=== PATIENT | female | born 1965 ===

== ENCOUNTER 2018-03-20 17:23 | Emergency (ER) | payer BC, MEDICAID ==
[2018-03-20 17:55] VITALS: BP 131/90; PULSE 72; RESP 16; TEMP 98.5; O2SAT 97
[2018-03-20 19:51] LABS: BASO % 0.4 % (0.0-2.0); EOS # 0.1 K/uL (0.0-0.7); EOS % 1.1 % (0.0-4.0); HEMOGLOBIN 13.2 g/dL (12.0-16.0); LYMPH # 2.8 K/uL (1.0-4.3); LYMPH % 37.6 % (20.0-40.0); MEAN CELL VOLUME 90.9 fl (81.0-99.0); MEAN CORPUSCULAR HEMOGLOBIN 30.9 pg (27.0-31.0); MEAN PLATELET VOLUME 9.1 fl (7.2-11.7); MONO # 0.8 K/uL (0.0-0.8); MONO % 10.9 % (0.0-10.0); NEUT # 3.7 K/uL (1.8-7.0); NRBC % 0.3 % (0.0-0.0); RBC 4.28 Mil/uL (3.80-5.20); WHITE BLOOD COUNT 7.4 K/uL (4.8-10.8)
--- NOTE | 2018-03-20 20:03 | ED PDOC ---
Upper Extremity Pain/Injury Time Seen by Provider: 03/20/18 18:50 Chief Complaint (Nursing): Finger,Hand,&Wrist Chief Complaint (Provider): Finger,Hand,&Wrist History Per: Patient History/Exam Limitations: no limitations Onset/Duration Of Symptoms: Hrs Current Symptoms Are (Timing): Still Present Additional Complaint(s): 52 year old female with a past medical history of hypertension who is presenting to the ED for evaluation of right wrist pain and swelling onset earlier today. Patient states that she woke up this morning and noticed that right wrist was swollen, warm, and tender. She reports that she took Tylenol around 11 am today and admits that she has a history of tendonitis of shoulder and elbow of the same arm which has presented similarly in the past. Patient denies any trauma, fevers, chills, numbness/tingling in fingers. PMD: Kevin Tanner Past Medical History Reviewed: Historical Data, Nursing Documentation, Vital Signs Vital Signs: Last Vital Signs Temp 98.5 F 03/20/18 17:51 Pulse 72 03/20/18 17:51 Resp 16 03/20/18 17:51 BP 131/90 03/20/18 17:51 Pulse Ox 97 03/20/18 17:51 - Medical History PMH: HTN, Hyperlipidemia - Surgical History Other surgeries: Tubal ligation, hysterectomy - Family History Family History: States: Unknown Family Hx - Social History Current smoker - smoking cessation education provided: No Alcohol: None Drugs: Denies - Home Medications Home Medications: Ambulatory Orders Medication Instructions Recorded Nabumetone 1,000 mg PO DAILY 03/22/15 Dicyclomine [Bentyl] 20 mg PO Q6 PRN #12 tab 01/08/16 Famotidine [Pepcid] 40 mg PO DAILY #10 tab 01/08/16 Ondansetron [Zofran] 4 mg PO Q8H #8 tab 01/08/16 Naproxen 500 mg PO BID PRN 7 Days tab 03/20/18 - Allergies Allergies/Adverse Reactions: Allergies Allergy/AdvReac Type Severity Reaction Status Date / Time No Known Allergies Allergy Verified 03/20/18 17:51 Review of Systems ROS Statement: Except As Marked, All Systems Reviewed And Found Negative Constitutional: Negative for: Fever, Chills Musculoskeletal: Positive for: Hand Pain Neurological: Negative for: Weakness, Numbness Physical Exam - Reviewed Nursing Documentation Reviewed: Yes Vital Signs Reviewed: Yes - Physical Exam Appears: Positive for: Non-toxic, No Acute Distress Head Exam: Positive for: ATRAUMATIC, NORMAL INSPECTION, NORMOCEPHALIC Skin: Positive for: Normal Color, Warm, DRY Pulses-Radial (L): 2+ Pulses-Radial (R): 2+ Extremity: Positive for: Capillary Refill (less than 2 seconds ), Other ( right wrist: posterior lateral aspect: edema and mild erythema with increased warmth to touch, decreased flexion and extension of wrist but normal flexion and extension at all five digits and elbow sensation to light touch intact in all 5 digits. ) Neurologic/Psych: Positive for: Alert, Oriented. Negative for: Motor/Sensory Deficits - Laboratory Results Result Diagrams: 03/20/18 19:45 - ECG O2 Sat by Pulse Oximetry: 97 (RA) Pulse Ox Interpretation: Normal Medical Decision Making Medical Decision Making: Time: 19:15 Plan: --CBC --Toradol 30 mg IM --X-ray right wrist X-ray interpreted by provider, with no fracture, dislocation, or abnormality appreciated. 20:15 --Ice pack supplied in the ED --Thumb spica splint placed to right hand, labs normal and patient referred to hand surgeon as well as recommended to take naproxen. --patient will be discharged home. Scribe Attestation: Documented by, Blanka Mauricio acting as a scribe for Chery Longoria PA-C. Provider Scribe Attestation: All medical record entries made by the Scribe were at my direction and personally dictated by me. I have reviewed the chart and agree that the record accurately reflects my personal performance of the history, physical exam, medical decision making, and the department course for this patient. I have also personally directed, reviewed, and agree with the discharge instructions and disposition. Disposition - Clinical Impression Clinical Impression: Wrist tendonitis - Patient ED Disposition Is Patient to be Admitted: No - Disposition Referrals: Twan Santillan MD [Medical Doctor] - Disposition: Routine/Home Disposition Time: 20:20 Condition: STABLE Additional Instructions: F/u with orthopedist (Dr. Santillan) for further evaluation of possible tendinitis of Right wrist. Use wrist brace for comfort and take Naproxen or Tylenol for pain. Prescriptions: Naproxen 500 mg PO BID PRN 7 Days tab PRN Reason: Pain, Moderate (4-7) Instructions: Tendonitis (DC) Forms: [facility] ([place]an), [employer] (Khmer), [facility] ED School/Work Excuse Print Language: CITIZEN OF [place]
--- NOTE | 2018-03-21 13:57 | RAD ---
Date of service: 03/20/2018 PROCEDURE: Right Wrist Radiographs. HISTORY: acute Right wrist pain COMPARISON: None. FINDINGS: BONES: Well corticated osseous excrescence is interposed between the ulnar styloid and the piece of form. These likely relate 2 or the sequela of prior trauma. Small osseous excrescence adjacent to the greater multangular. The finding is marked on the study for review. JOINTS: Normal. No dislocation. SOFT TISSUES: Soft tissue swelling about the wrist circumferentially. OTHER FINDINGS: None. IMPRESSION: Soft tissue swelling. Possible avulsed fracture from the greater multangular. Evidence of old/prior trauma.
== END 2018-03-20 20:28 | disposition home or self-care (01) ==
LOC: H.ER 17:23
DX: M65.841 Other synovitis and tenosynovitis, right hand (principal); E78.5 Hyperlipidemia, unspecified; I10 Essential (primary) hypertension
CPT/HCPCS: 29125; 73110; 81025; 85025; 96372; 99284; J1885